=== PATIENT | female | born 1950 | race Caucasian/White ===

== ENCOUNTER 2022-06-24 16:04 | Emergency (ER) | payer MEDICARE, SELFPAY ==
--- NOTE | 2022-06-24 16:10 | XRR_ITS ---
PROCEDURE INFORMATION: Exam: XR Chest Exam date and time: 06/24/2022 4:38 PM Age: 72 years old Clinical indication: Shortness of breath; Additional info: SOB TECHNIQUE: Imaging protocol: Radiologic exam of the chest. Views: 1 view. COMPARISON: No relevant prior studies available. FINDINGS: Lungs: Hyperinflated lungs with mild diffuse coarsening of the lung parenchyma and biapical scarring. No consolidation. Pleural spaces: Unremarkable. No pleural effusion. No pneumothorax. Heart/Mediastinum: Unremarkable. No cardiomegaly. Bones/joints: Unremarkable. XR/XR chest 1V portable [id number] IMPRESSION: Sequela of COPD. No acute findings.
[2022-06-24 16:15] VITALS: BP 125/67; PULSE 73; RESP 16; TEMP 36.4; O2SAT 91
--- NOTE | 2022-06-24 18:05 | ECG_ITS ---
[facility] Test Date: 2022-06-24 Pat Name: Carol Dee Department: Room: Gender: Female Actuarial Associate: : 1950 Requested By: Beth Henning Order Number: [id number] Thomas MD: Wojciech Sheppard M.D. Measurements Intervals [place] Rate: 74 P: 65 NC: 167 QRS: 72 QRSD: 81 T: 61 QT: 356 QTc: 397 Interpretive Statements SINUS RHYTHM No previous ECG available for comparison Electronically Signed On 06-24-2022 18:32:58 CDT by Wojciech Sheppard M.D. [id number]
[2022-06-24 18:36] VITALS: BP 137/67; PULSE 73; RESP 19; O2SAT 93
[2022-06-24 19:21] LABS: SARS Covid-2 Antigen Positive (Negative)
--- NOTE | 2022-06-24 20:08 | W.ED.SOB ---
HPI - SOB/Dyspnea General: Chief Complaint: Shortness of Breath/Dyspnea Stated Complaint: SOB Time Seen by Provider: 06/24/22 18:40 History of Present Illness: HPI Narrative: 72-year-old female presents with feeling of shortness of breath. She reports being on for a couple days. Mild increased cough. No fevers chills nausea or vomiting. She does report that she smokes. She does not have any inhalers at home. Patient reports her son is also here with similar symptoms. Associated symptoms: Deny abdominal pain, chest pain, dizziness, fever(s), nausea, palpitations or vomiting Review of Systems Const: Denies: fever(s), chills or body aches Card: Denies: chest pain or palpitations Resp: Reports: dyspnea, non-productive cough and wheezing GI: Denies: abdominal pain, nausea or vomiting : Denies: flank pain or dysuria Musc: Denies: neck pain or back pain Skin/Breast: Denies: rash Neuro: Denies: headache(s) or dizziness Psych: Denies: anxiety or depression Physical Exam Const: COMMON NORMALS: no acute distress, patient oriented x3 and alert Resp: COMMON NORMALS: normal respiratory effort and No use of accessory muscles AUSCULTATION: wheezes scattered wheezes Cardio: COMMON NORMALS: regular rate and regular rhythm RATE: regular rate RHYTHM: regular rhythm GI: COMMON NORMALS: Soft to palpation and non-tender PALPATION: Yes Soft to palpation Neuro: COMMON NORMALS: patient oriented x3 and no focal motor deficits SENSORIUM/ORIENTATION: Yes alert Psych: COMMON NORMALS: mental status grossly normal, cooperative, normal affect and speech normal SPEECH: Yes normal speech Skin: COMMON NORMALS: no rashes or lesions noted and no wounds GENERAL SKIN EXAM: no rashes or lesions noted Course Vital Signs: Vital signs: Vital Signs Temperature 97.5 F L 06/24/22 16:15 Pulse Rate 63 06/24/22 20:40 Respiratory Rate 18 06/24/22 20:37 Blood Pressure 137/67 06/24/22 18:36 Pulse Oximetry 91 06/24/22 20:37 Oxygen Delivery Me thod 06/24/22 20:37 MDM - SOB/Dyspnea Medical Decision Making Patient reports that she is feeling much better following her breathing treatment and treatment. Patient's oxygen is in the mid to low 90s so I will prescribe her home oxygen. I suspect that this may be near her baseline. She is not having difficulty breathing and does not really feel short of breath. She does have COPD on x-ray that has likely undiagnosed. Gave her Decadron. Will prescribe her albuterol Pulmicort and home oxygen. Patient is ready to be discharged. She is stable upon discharge Lab Data Labs/Radiology: Radiology Impressions Chest X-Ray 06/24/22 16:10 IMPRESSION: Sequela of COPD. No acute findings. Laboratory Results SARS-CoV-2 Ag (Rapid) Positive (Negative) H 06/24/22 18:47 EKG Data EKG 1: I personally reviewed and interpreted this EKG as follows: EKG Interpretation Date: 06/24/22 EKG interpretation time: 18:05 Interpretation: Normal sinus rhythm, heart rate 74, NJ 167, acute RS 81, normal EKG. Discharge Plan Discharge Patient Disposition: Home Clinical Impression: COPD (chronic obstructive pulmonary disease), COVID-19 Condition: Stable Prescriptions: New Proventil HFA 90 mcg/actuation HFA aerosol inhaler 2 inh inhalation Q4H PRN (Reason: shortness of breath or wheezing) Qty: 8.5 0RF Pulmicort Flexhaler 180 mcg/actuation aerosol powdr breath activated 2 inh inhalation Q12H Qty: 1 0RF Discharge Orders: Discharge ED (Routine); Ordered 06/24/22 Ordered By: Manny Cid Other Ambulatory Orders: DME: Oxygen (Order) Location: None Selected Ordered By: Manny Cid Discharge Diet: Advance as tolerated Discharge Activity: Resume usual activity Patient Instructions: COPD (Chronic Obstructive Pulmonary Disease) (DC), COVID-19 (Coronavirus Disease 2019) (ED), Opioid Safety, Pain Management Activity Restrictions/Additional Instructions: Monitor your oxygen and use home oxygen if it gets below 90 or if you feel like you are getting short of breath. Follow-up with your primary care provider in a couple days for recheck of your Return to the ER as needed Coding Level of Care Code ED Apparel Rental Clerk for Romel Fwd Exam Detailed
[2022-06-24] MEDS: dexamethasone 10 mg/mL INJ 6 MG IM (20:34)
[2022-06-24] MEDS: ipratropium-albuterol 3 mL Neb INHALATION (20:35)
[2022-06-24 20:37] VITALS: PULSE 67; RESP 18; O2SAT 91
[2022-06-24 20:40] VITALS: PULSE 63
[2022-06-24 21:18] VITALS: BP 112/69; PULSE 63; RESP 18; O2SAT 92
== END 2022-06-24 21:19 | disposition home or self-care (01) ==
PROVIDERS: Emergency Medicine; Emergency Provider Student in an Organized Health Care Education/Training Program
DX: U07.1 COVID-19 (principal); J44.9 Chronic obstructive pulmonary disease, unspecified
CPT/HCPCS: 71045; 87426; 93005; 94640; 96372; 96374; 99285; J1100

== ENCOUNTER → 2023-09-03 09:32 | Outpatient (BNVA) | payer MEDICARE, SELFPAY | PROVIDERS: Visit Provider Nurse Practitioner Family | DX: J06.9 Acute upper respiratory infection, unspecified (principal); R50.9 Fever, unspecified | CPT/HCPCS: 80053; 87486; 87581; 87633 ==

== ENCOUNTER 2025-03-08 11:08 | Emergency (ER) | payer MEDICARE, SELFPAY ==
[2025-03-08 11:20] VITALS: BP 112/53; PULSE 71; TEMP 36.7; O2SAT 93; BMI 16.8
--- NOTE | 2025-03-08 12:32 | W.ED.FALL ---
HPI - Fall General: Chief Complaint: Fall Stated Complaint: fall right side rib pain Time Seen by Provider: 03/08/25 11:34 Source: patient and family Mode of arrival: wheelchair Limitations: no limitations History of Present Illness: Patient is a nice 74-year-old female presents right rib pain. Patient states 2 days ago she was standing up from the toilet when the rug that she was standing on slipped causing her to fall and strike her right ribs on the edge of the bathtub. She denies striking her head or LOC. She does not complain of any neck or back pain. Patient and family states they were trying to treat at home conservatively but pain worsened this morning thus prompting their emergency evaluation. Patient states pain is worse with movement, coughing, palpation, deep inhalation. She has not ran fevers. She has no abdominal pain. MD complaint: fall Onset (ago): day(s) Fall from: standing Fall witnessed: no Place fall occurred: home Loss of consciousness: None Prolonged down time: no Symptoms prior to fall: none Context: tripped/slipped Location of injury: chest Severity: moderate Associated symptoms-after fall: Reports no associated symptoms and chest pain (R rib pain); Denies abdominal pain, headache(s), hematuria, lightheadedness or neck pain Related Data Home Medications ?Medication ?Instructions ?Recorded ?Confirmed ibuprofen 200 mg tablet 200 mg PO Q6H PRN Pain 03/08/25 03/08/25 akzkocor-shh-rklrs ac 400 1 tab PO DAILY 03/08/25 03/08/25 mcg-calcium carb 500 mg-vit K1 20 mcg tablet (Women's 50 Plus Multivitamin) Allergies Allergy/AdvReac Type Severity Reaction Status Date / Time No Known Allergies Allergy Verified 03/08/25 11:26 Review of Systems Eyes: Denies: change in vision, blurry vision, photophobia, eye discharge, floaters or seeing flashes ENMT: Denies: throat pain, odynophagia, ear or mastoid pain, ear discharge, nasal discharge, epistaxis or sinus pain Card: Reports: chest pain (R rib pain); Denies: palpitations, lightheadedness, syncope or pre-syncope Resp: Reports: pain on inspiration; Denies: dyspnea, wheezing, change in phlegm color or hemoptysis GI: Denies: abdominal pain : Denies: flank pain or hematuria Musc: Denies: neck pain, back pain, extremity pain or joint pain Neuro: Denies: headache(s), numbness in extremities, weakness in extremities, sensory changes or dizziness Physical Exam Const: COMMON NORMALS: no acute distress, average body habitus, patient oriented x3, no limitations, healthy appearing, alert and well nourished GENERAL APPEARANCE: cooperative ORIENTATION/CONSCIOUSNESS: Yes awake, Yes oriented to person, Yes oriented to place and Yes oriented to time HENMT: COMMON NORMALS: normocephalic, atraumatic and TM's normal bilaterally HEAD & SCALP: normal to inspection, normocephalic and atraumatic; no Vang's sign, no hematoma and no raccoon eyes FACE & SINUS: normal facial exam TYMPANIC MEMBRANE: TM's normal bilaterally MOUTH: other (no intraoral injuries noted) Eye: COMMON NORMALS: Equal, round and reactive pupils present and EOMs intact bilaterally GENERAL EYE: appearance normal, both eyes and all related structures and normal light reflex PUPIL: Yes Equal, round and reactive pupils present DIRECT OPHTHALMOSCOPY: Yes normal light reflex Neck/C-Spine: COMMON NORMALS: full ROM GENERAL: Yes normal visual inspection CERVICAL SPINE: Yes cervical ROM normal, No pain with cervical ROM, No Cervical spine tenderness, No step off deformity and No Paracervical muscle tenderness Chest: COMMONS NORMALS: normal inspection of the chest OTHER: TTP R posteriolateral R ribs without crepitus; lung sounds normal Resp: COMMON NORMALS: normal respiratory effort and clear to auscultation bilaterally AUSCULTATION: clear to auscultation bilaterally Cardio: COMMON NORMALS: regular rate and regular rhythm RATE: regular rate RHYTHM: regular rhythm GI: COMMON NORMALS: Normal to inspection, nondistended, normoactive bowel sounds present, Soft to palpation, non-tender, No hepatosplenomegaly present and no masses INSPECTION: Yes normal to inspection and No abdominal wall ecchymosis AUSCULTATION: Yes normoactive bowel sounds PALPATION: Yes Soft to palpation and Yes No hepatosplenomegaly present Back/Pelvis: COMMON NORMALS: thoracic and lumbar spine normal to inspection, no thoracic nor lumbar tenderness and thoraco-lumbar ROM normal Extremity: COMMON NORMALS: normal to inspection and full ROM GENERAL: Yes normal exam except as noted Neuro: SHAYY COMA SCALE: document GCS findings Burchard coma scale eye opening: Spontaneous Burchard coma scale verbal response: Orientated Shayy coma scale motor response: Obey commands Burchard coma scale total score: 15 COMMON NORMALS: patient oriented x3, CN's II-XII intact bilaterally, moves all extremities, no focal motor deficits, no sensory deficits noted and gait normal SENSORIUM/ORIENTATION: Yes alert, Yes oriented to person, Yes oriented to place and Yes oriented to time SPEECH: speech normal GAIT: Yes Normal gait present Skin: COMMON NORMALS: no rashes or lesions noted GENERAL SKIN EXAM: no rashes or lesions noted TRAUMA: no lacerations or abrasions Course Vital Signs: Vital signs: Vital Signs Temperature 98.1 F 03/08/25 11:20 Pulse Rate 60 03/08/25 14:18 Blood Pressure 126/53 03/08/25 14:18 Pulse Oximetry 93 03/08/25 14:18 Oxygen Delivery Me thod Room Air 03/08/25 14:00 MDM - Fall Medical Decision Making Patient clinically appears in NAD. He wants to go home. Her CXR is unremarkable-reviewed with Dr. Boyle. Vitals are normal. She feels comfortable taking OTC medications for her discomfort. Return precautions given. Medical Records I reviewed the patient's medical records. XR interpretation done by ED provider, pending radiology final review Discharge Plan Discharge Patient Disposition: Home Clinical Impression: Contusion of rib on right side Qualifiers: Encounter type: initial encounter Qualified Code(s): S20.211A - Contusion of right front wall of thorax, initial encounter Condition: Stable Prescriptions: No Action ibuprofen 200 mg Tablet 200 mg PO Q6H PRN (Reason: Pain) Women's 50 Plus Multivitamin 400 mcg-500 mg calcium-20 mcg Tablet 1 tab PO DAILY Discharge Orders: Discharge ED (Routine); Ordered 03/08/25 Ordered By: Kiki Pennington Patient Instructions: Rib Contusion (ED) Activity Restrictions/Additional Instructions: As we discussed, continue doxn-ynz-ikwyjts analgesic such as Tylenol and ibuprofen to help with your discomfort. You may also use ice and heat. You may return to the emergency department at anytime for any further concerns you may have. Print Language: Welsh Coding Level of Care Code ED Carving Machine Operator for Romel Barrera
--- NOTE | 2025-03-08 12:44 | XR_ITS ---
WS: [id number] XR ribs RT mn 3V w CXR1V [id number] REASON FOR EXAM: fall/pain FINDINGS: No acute rib fracture identified. There is no pneumothorax or subcutaneous emphysema. No lung or pleural abnormality. XR/XR ribs RT mn 3V w CXR1V [id number] IMPRESSION: No acute abnormality.
[2025-03-08 14:00] VITALS: BP 126/53; PULSE 66; O2SAT 92
[2025-03-08 14:18] VITALS: BP 126/53; PULSE 60; O2SAT 93
== END 2025-03-08 14:19 | disposition home or self-care (01) ==
PROVIDERS: Emergency Provider Physician Assistant
DX: S20.211A Contusion of right front wall of thorax, initial encounter (principal); W01.198A Fall on same level from slipping, tripping and stumbling with subsequent striking against other object, initial encounter
CPT/HCPCS: 71101; 99283

== ENCOUNTER → 2025-08-10 14:31 | Outpatient (BNVA) | payer MEDICARE, SELFPAY | PROVIDERS: Visit Provider Nurse Practitioner Family | DX: M79.7 Fibromyalgia (principal); R41.3 Other amnesia; Z13.6 Encounter for screening for cardiovascular disorders | CPT/HCPCS: 80053; 80061; 81003; 82306; 82607; 82746; 83735; 84443; 85025 ==